=== PATIENT | male | born 1960 | race Caucasian/White ===

== ENCOUNTER 2023-08-29 07:02 | Emergency (ER) | payer BC, SELFPAY ==
[2023-08-29] VITALS (22 sets, daily range): BP systolic 101–145; BP diastolic 53–92; PULSE 75–88; RESP 12–22; TEMP 36.3; O2SAT 98–100
--- NOTE | ~2023-08-29 | XR_ITS ---
Clinical Indication: Left arm pain, prior history of cardiac arrest PA and lateral views of the chest: Comparison: None Findings: The lungs are clear, without evidence of focal consolidation or pleural effusion. Cardiome diastinal silhouette is within normal limits. Bones and soft tissues are unremarkable. Impression: Normal chest. Reviewed, dictated and finalized at location . Impression: Normal chest.
--- NOTE | 2023-08-29 07:10 | ECG_ITS ---
[facility] [place] [address] Test Date: 2023-08-29 Pat Name: Nazario Trejo Department: Room: Gender: Assistant To The President: : 1960 Requested By: Dante Noble Order Number: [id number] Stepan MD: Tye Galarza D.O. Measurements Intervals [place] Rate: 88 P: 44 LA: 159 QRS: 46 QRSD: 142 T: 217 QT: 386 QTc: 467 Interpretive Statements SINUS RHYTHM WITH OCCASIONAL VENTRICULAR PREMATURE COMPLEXES LEFT BUNDLE BRANCH BLOCK BASELINE ARTIFACT- I, II, AVR, AVL, AVF ABNORMAL ECG No previous ECG available for comparison Electronically Signed On 08-29-2023 09:22:19 CDT by Tye Galarza D.O.
[2023-08-29 07:42] LABS: Alanine Aminotransferase 32 U/L (6-50); Albumin Level 4.9 g/dL (3.5-5.1); Alkaline Phosphatase 129 U/L (38-126); Anion Gap 9 mmol/L (4-12); Aspartate Amino Transferase 29 U/L (17-59); Bilirubin,Total 0.6 mg/dL (0.2-1.3); Blood Urea Nitrogen 20 mg/dL (9-20); Calcium 9.5 mg/dL (8.4-10.2); Carbon Dioxide 30 mmol/L (22-30); Chloride 98 mmol/L (98-107); Estimated CRCL calculation 76 ml/min; Estimated Glomerular Filt Rate > 60; Glucose 227 mg/dL (65-110); Lipase 163 U/L (23-300); Potassium 4.3 mmol/L (3.4-5.0); Sodium 137 mmol/L (137-145)
[2023-08-29 07:44] LABS: Basophils Absolute Auto 0.1 K/mm3 (0.0-0.1); Basophils Percent Auto 1.6 % (0.2-1.2); Eosinophils Absolute Auto 0.4 K/mm3 (0-0.3); Eosinophils Percent Auto 5.5 % (0-4.4); Hematocrit 41.9 % (42.0-52.0); Immature Granulocyte Absolute 0.01 K/mm3 (0.00-0.031); Immature Granulocyte Percent A 0.1 % (0-0.5); Lymphocytes Absolute Auto 2.85 K/mm3 (0.9-3.2); Lymphocytes Percent Auto 40.2 % (18.3-44.2); Mean Corpuscular HGB Conc 33.4 g/dl (32-36); Mean Corpuscular Hemoglobin 28.4 pg (26-34); Monocytes Absolute Auto 0.7 K/mm3 (0.1-0.6); Monocytes Percent Auto 9.9 % (2.6-8.5); Neutrophils Percent Auto 42.7 % (45.5-73.1); Platelet Count Result 270 k/mm3 (150-375); Red Blood Count 4.93 M/mm3 (4.6-6.20); Red Cell Distribution Width 12.2 % (11.5-14.5); White Blood Count 7.1 K/mm3 (4.5-10.0)
[2023-08-29] MEDS: ASPIRIN 81 MG CHEWABLE TABLET 324 MG PO (07:48)
[2023-08-29 07:54] LABS: Troponin I < 0.012 ng/mL (0.000-0.034)
[2023-08-29 08:13] LABS: INR 0.9
[2023-08-29 08:15] LABS: Partial Thromboplastin Time 28.3 Seconds (22.3-36.8)
--- NOTE | 2023-08-29 10:01 | ECG_ITS ---
[facility] [address] Test Date: 2023-08-29 Pat Name: Nazario Trejo Department: Room: Gender: M Special Shopper: : 1960 Requested By: Dante Noble Order Number: [id number] Stepan MD: Tye Galarza D.O. Measurements Intervals [place] Rate: 77 P: 36 HI: 151 QRS: 41 QRSD: 154 T: -62 QT: 414 QTc: 471 Interpretive Statements SINUS RHYTHM WITH OCCASIONAL VENTRICULAR PREMATURE COMPLEXES LEFT BUNDLE BRANCH BLOCK BASELINE ARTIFACT- I, II, III, AVR, AVL ABNORMAL ECG Compared to ECG 08/29/2023 07:13:20 No significant changes Electronically Signed On 08-29-2023 11:45:42 CDT by Tye Galarza D.O.
[2023-08-29 10:43] LABS: Troponin I < 0.012 ng/mL (0.000-0.034)
--- NOTE | 2023-08-29 11:40 | ED.GENADULT ---
HPI - General Adult General Chief complaint: Extremity Problem,Nontraumatic Stated complaint: numbness and tingling left arm Time Seen by Provider: 08/29/23 07:16 Source: patient Mode of arrival: ambulatory Limitations: no limitations History of Present Illness HPI narrative: 63-year-old with a history of hypertension, diabetes, CAD status post stent here with complaints of left arm tingling since this morning. Patient states that he had a similar episode 2 years ago and was diagnosed with KS and had one stent . Patient also states that he had a stress thallium year ago and was normal. He also states that he has left bundle-branch block. He denies having any chest pain. He had no history of shortness of breath, nausea vomiting. He is driving down to dialysis and he works for [employer]. Onset (ago): hour(s) (4) Severity: mild Quality: other (tingling) Pain Consistency: constant Relieving factors: none Exacerbating factors: none Associated symptoms: denies other symptoms Related Data Allergies Allergy/AdvReac Type Severity Reaction Status Date / Time No Known Allergies Allergy Verified 08/29/23 07:16 Review of Systems Review of Systems: All systems reviewed & are unremarkable except as noted in HPI and below Constitutional: Constitutional: Reports no additional constitutional complaints Eyes: Eyes: Reports no additional eye complaints ENT: Reports system reviewed and no additional complaints, except as documented Cardiovascular: Cardiovascular: Reports as per HPI and Reports no additional cardiovascular complaints Gastrointestinal: Gastrointestinal: Reports no additional gastrointestinal complaints Musculoskeletal: Musculoskeletal: Reports no additional musculoskeletal complaints Neurologic: Reports system reviewed and no additional complaints, except as documented Psychiatric: Psychiatric: Reports no additional psychiatric complaints Exam Narrative: GENERAL: Well-appearing, well-nourished, and in no acute distress. HEAD: Normocephalic, atraumatic. EYES: PERRLA and EOMI. ENT: Nares clear, no rhinorrhea or epistaxis. Mucous membranes moist. NECK: Supple. CHEST: Clear to auscultation. No respiratory distress. HEART: Regular rate and rhythm. No murmur heard. Normal peripheral pulses. ABDOMEN: Soft, nontender, nondistended, normal active bowel sounds. EXTREMITIES: Normal range of motion. No edema. SKIN: Warm, dry, no rash. NEURO: No focal deficits. Alert and oriented x3. PSYCH: Normal mood and affect. Course Course Emergency Course: Patient remains asymptomatic. I did inform him about his lab work, EKG findings. He declined admission. He states that he is feeling fine and he wants to follow with his doctor Vital Signs Vital signs: Vital Signs Temperature 36.3 C L 08/29/23 07:10 Pulse Rate 88 08/29/23 07:10 Respiratory Rate 16 08/29/23 07:10 Blood Pressure 134/79 08/29/23 07:10 Pulse Oximetry 100 08/29/23 07:10 Oxygen Delivery Room Air 08/29/23 07:10 Temperature 36.3 C L 08/29/23 07:10 Pulse Rate 77 08/29/23 11:03 Respiratory Rate 14 08/29/23 11:03 Blood Pressure 101/53 L 08/29/23 10:01 Pulse Oximetry 98 08/29/23 11:03 Oxygen Delivery Room Air 08/29/23 07:10 Medical Decision Making Differential Diagnosis Differential Diagnosis: Cervical radiculopathy, paresthesia, ACS Vital Signs Vital Signs: Vital Signs Temperature 36.3 C L 08/29/23 07:10 Pulse Rate 88 08/29/23 07:10 Respiratory Rate 16 08/29/23 07:10 Blood Pressure 134/79 08/29/23 07:10 Pulse Oximetry 100 08/29/23 07:10 Oxygen Delivery Room Air 08/29/23 07:10 Temperature 36.3 C L 08/29/23 07:10 Pulse Rate 77 08/29/23 11:03 Respiratory Rate 14 08/29/23 11:03 Blood Pressure 101/53 L 08/29/23 10:01 Pulse Oximetry 98 08/29/23 11:03 Oxygen Delivery Room Air 08/29/23 07:10 Lab Data Lab results reviewed: Yes I reviewed the patient's lab results.
== END 2023-08-29 11:56 | disposition home or self-care (01) ==
PROVIDERS: Emergency Provider Family Medicine
DX: R07.9 Chest pain, unspecified (principal); I25.10 Atherosclerotic heart disease of native coronary artery without angina pectoris; I10 Essential (primary) hypertension; E11.9 Type 2 diabetes mellitus without complications; Z95.5 Presence of coronary angioplasty implant and graft; I25.2 Old myocardial infarction
CPT/HCPCS: 36415; 71046; 80053; 83690; 84484; 85025; 85610; 85730; 93005; 99284; A9270